=== PATIENT | male | born 1960 | race Caucasian/White ===

== ENCOUNTER 2020-04-29 16:25 | Emergency (ER) | payer OTHER | END 2020-04-29 18:28 | disposition other institution (70) | LOC: ED 16:25 | DX: Z02.89 Encounter for other administrative examinations (principal) ==

== ENCOUNTER 2020-04-29 16:25 | Emergency (ER) | payer OTHER ==
[~2020-04-29] VITALS: Ht 175.3 cm; Wt 79.4 kg
[2020-04-29 16:29] VITALS: Ht 175.3 cm; Wt 79.4 kg
[2020-04-29 18:27] VITALS: BP 169/108
== END 2020-04-29 18:28 | disposition other institution (70) ==
LOC: ED 16:25
DX: I16.0 Hypertensive urgency (principal)